=== PATIENT | female | born 1940 ===

== ENCOUNTER 2017-09-06 01:19 | Inpatient (IN) | payer MEDICARE ==
[2017-09-05 14:26] LABS: INR 0.98
[~2017-09-06] VITALS: Ht 167.6 cm; Wt 68.9 kg
[2017-09-06] VITALS (13 sets, daily range): BP systolic 123–185; BP diastolic 48–113
[~2017-09-06 01:19] MED LIST: ACET-1966 PO; ACETAMINOPHEN 500 MG TAB PO ONE; ASPI-1471 PO; ATOR10TA24 PO; CAR3.125 PO; CELECOXIB 200 MG CAP PO ONE; CLON-327 PO; DILT180C2 PO; FAMOTIDINE 20 MG TAB PO ONE; FURO-45 PO; HYDR-393 PO; LEVO50TA86 PO; LIDO1ADH41 TD; LIDOCAINE/SOD BICARB 8.4% SYR ID ONE; LOSA100T67 PO; METH-278 PO; MIDAZOLAM 2 MG/2 ML VIAL IVP PRN; NORMOSOL R SOLN(*) 1000 ML BAG 1,000 ML IV PRN; PREGABALIN 75 MG CAPSULE PO ONE; TRANEXAMIC AC 1000 MG/10ML SDV 1,000 MG in DEXTROSE 5% 50 ML BAG 50 ML IV ONE; TRAZ-156 PO; cloNIDine EPIDUR INJ 100MCG/ML 40 MCG, ROPIVACAINE 0.5% 20 ML VIAL 25 ML, EPINEPHrine H... INJ ONE
[2017-09-06] MEDS ORDERED: CLINDAMYCIN(*) 900 MG/NS 50 ML 50 ML IVPB ONE (06:00)
[2017-09-06] MEDS ORDERED: cloNIDine EPIDUR INJ 100MCG/ML 40 MCG, ROPIVACAINE 0.5% 20 ML VIAL 25 ML, EPINEPHrine H... INJ ONE (06:15)
[2017-09-06] MEDS ORDERED: LIDOCAINE/SOD BICARB 8.4% SYR ID ONE (06:15)
[2017-09-06] MEDS ORDERED: PREGABALIN 75 MG CAPSULE PO ONE (06:15)
[2017-09-06] MEDS ORDERED: MIDAZOLAM 2 MG/2 ML VIAL IVP PRN (06:15)
[2017-09-06] MEDS ORDERED: CELECOXIB 200 MG CAP PO ONE (06:15)
[2017-09-06] MEDS ORDERED: FAMOTIDINE 20 MG TAB PO ONE (06:15)
[2017-09-06] MEDS ORDERED: TRANEXAMIC AC 1000 MG/10ML SDV 1,000 MG in DEXTROSE 5% 50 ML BAG 50 ML IV ONE (06:15)
[2017-09-06] MEDS ORDERED: NORMOSOL R SOLN(*) 1000 ML BAG 1,000 ML IV PRN (06:15)
[2017-09-06] MEDS ORDERED: ACETAMINOPHEN 500 MG TAB PO ONE (06:15)
[2017-09-06] MEDS ORDERED: fentaNYL CITR 100 MCG/2 ML AMP ONE ×3 (06:50→09:54)
[2017-09-06] MEDS ORDERED: DEXAMETHASONE SOD 4 MG/ML VIAL ONE (06:50)
[2017-09-06] MEDS ORDERED: PROPOFOL EMUL(*) 10MG/ML 20 ML 20 ML ONE (06:50)
[2017-09-06] MEDS ORDERED: LIDOCAINE MPF 1% 5 ML VIAL ONE (06:50)
[2017-09-06] MEDS ORDERED: ONDANSETRON 4 MG/2 ML VIAL ONE (06:50)
[2017-09-06] MEDS ORDERED: KETAMINE HCL 200 MG/20 ML MDV ONE (06:51)
[2017-09-06] MEDS ORDERED: MIDAZOLAM 2 MG/2 ML VIAL ONE (06:54)
[2017-09-06] MEDS ORDERED: GLYCOPYRROLATE 0.2MG/ML 1 ML INJ ONE (07:10)
--- NOTE | 2017-09-06 08:39 | RADIOLOGY IMAGING REPORT ---
FACILITY: [facility] - [place] PATIENT NAME: Mary Kay Barrientos : 1940 MR: [id number] V: [id number] EXAM DATE: ORDERING PHYSICIAN: JUDI ZIMMERMAN TECHNOLOGIST: Location: [facility] - [place] Patient: Mary Kay Barrientos : 1940 Visit/Account:[id number] Date of Sevice: 09/05/2017 LEGS BILAT STANDING HIPS-ANKLE History: Leg pain. Left knee pain. Comparison study: None. Findings: Pelvis: There is diffuse osteopenia. There is no finding of a pelvic fracture. There is no femoral neck fracture. There has been posterior and intradiscal lumbar fusion in the lower lumbar spine. Hips: There are findings of osteoarthrosis involving the hips bilaterally that manifest as subchondra l sclerosis and superolateral joint space narrowing. Femurs: There is no finding of fracture involving the right or left femur. Knees: There are findings of diffuse joint space now with chondrocalcinosis and bony proliferation in volving the right and left knee. The findings are suggestive of osteoarthrosis and/or CPPD. Hip and right hemipelvis with respect to the left. This could reflect muscular spasm. Ankles: There is no fracture involving the right or left ankle. Note that in the pelvis there is subtle elevation of the right IMPRESSION: 1. Osteoarthrosis of the hips bilaterally. 2. Diffuse joint space narrowing and chondrocalcinosis of the right and left knee suggesting osteoar throsis and/or CPPD. 3. Osteopenia without fracture. 4. Postoperative changes lumbar spine. Report Dictated By: Sae Goodman MD at 09/06/2017 8:29 AM Report E-Signed By: Sae Goodman MD at 09/06/2017 8:35 AM WSN:[id number]
[2017-09-06] MEDS ORDERED: PROMETHAZINE 25 MG/ML 1 ML AMP IVP PRN (09:45)
[2017-09-06] MEDS ORDERED: FLUSH 10 ML SYR IVP PRN (09:45)
[2017-09-06] MEDS ORDERED: KCL/D5LR 20 MEQ/1000 ML PREMIX 1,000 ML IV PRN (09:45)
[2017-09-06] MEDS ORDERED: diphenhydrAMINE 25 MG CAP PO PRN (09:45)
[2017-09-06] MEDS ORDERED: MORPHINE SULFATE 30 MG PCA IV PRN (09:45)
[2017-09-06] MEDS ORDERED: MAGNESIUM CITRATE 300 ML BTL PO PRN (09:45)
[2017-09-06] MEDS ORDERED: NALOXONE HCL 0.4 MG/ML VIAL IVP PRN (09:45)
[2017-09-06] MEDS ORDERED: ACETAMINOPHEN 500 MG TAB PO PRN (09:45)
[2017-09-06] MEDS ORDERED: ONDANSETRON 4 MG/2 ML VIAL IVP PRN (09:45)
[2017-09-06] MEDS ORDERED: DOCU-416 PO (11:39)
--- NOTE | 2017-09-06 12:06 | RADIOLOGY IMAGING REPORT ---
FACILITY: [facility] - [place] PATIENT NAME: Mary Kay Barrientos : 1940 MR: [id number] V: [id number] EXAM DATE: ORDERING PHYSICIAN: JUDI ZIMMERMAN TECHNOLOGIST: Location: [facility] - [place] Patient: Mary Kay Barrientos : 1940 Visit/Account:[id number] Date of Sevice: 09/06/2017 KNEE LIMITED LEFT Indication: Postop knee Comparison: 09/05/2017 Findings: Compared to the previous study, patient has undergone patellar arthroplasty. Two part patellar prost hetic is now in place and appears in good alignment. Stable chondrocalcinosis is noted within the karina int space. IMPRESSION: 1. Unremarkable postoperative appearance of patellar arthroplasty Report Dictated By: Lake Crum at 09/06/2017 11:32 AM Report E-Signed By: Lake Crum at 09/06/2017 12:02 PM WSN:[id number]
--- NOTE | 2017-09-06 12:16 | Hospitalist Consultation ---
History of Present Illness Requesting Physician Dr. Zimmerman Reason for Consult Hypertension History of Present Illness This patient was admitted for knee replacement surgery. It is reported that the surgery went well and was without complication. History Problems: (1) Hypertension Home Meds Reported Medications Docusate Sodium (COLACE) 100 Mg Capsule, 100 MG PO BID, CAPSULE 09/06/17 Lidocaine (Lidocare) 4 % Adh..patch, 5 ADH.PATCH TD Q12H Y for PAIN 5% LIDOCAINE PATCH 12 HOURS ON 12 HOURS OFF 07/18/17 Acetaminophen/Hydrocodone (HYDROCODON-ACETAMINOPHN 10-325) 1 Each Tab, 1 EACH PO 5XD, TAB 07/18/17 Methocarbamol (METHOCARBAMOL) 500 Mg Tablet, 1000 MG PO QID MAX6/DAY 07/18/17 Atorvastatin Calcium (LIPITOR) 10 Mg Tablet, 1 TAB PO HS, TAB 07/18/17 Carvedilol (CARVEDILOL) 3.125 Mg Tab, 3.125 MG PO BID, TAB 07/18/17 Diltiazem Hcl (DILTIAZEM ER) 180 Mg Capsule.er, 180 MG PO BID 07/18/17 Clonidine Hcl (CLONIDINE HCL) 0.1 Mg Tablet, 0.2 MG PO BID, TAB 07/18/17 Losartan Potassium (LOSARTAN POTASSIUM) 100 Mg Tablet, 100 MG PO QDAY 07/18/17 Levothyroxine Sodium (LEVOTHYROXINE SODIUM) 50 Mcg Tablet, 25 MCG PO QDAY, TAB 07/18/17 Furosemide (FUROSEMIDE) 20 Mg Tablet, 1 TAB PO DAILY, TAB 07/18/17 Acetaminophen (TYLENOL) 325 Mg Tablet, 325 MG PO BID Y for PAIN, TAB 07/18/17 Aspirin (ASPIR 81) 81 Mg Tablet.dr, 81 MG PO QDAY, TAB 07/18/17 Allergies: Coded Allergies: Penicillins (Verified Allergy, Intermediate, RASH, 07/18/17) mercury (elemental) (Verified Allergy, Intermediate, SWELLING, RASH, ) Tetanus Vaccines and Toxoid (Unverified Allergy, Unknown, 09/05/17) doxycycline (Unverified Allergy, Unknown, 09/05/17) Patient History: FH: [place] (myocardial infarction) MOTHER, BROTHER OR SISTER, FH: cancer FATHER, FH: stroke MOTHER, Hx Smoking: Yes (2 PPD 40YRS, QUIT 2005) Smoking Status: Former Smoker Caffeine Intake: Coffee Caffeine/Cups Per Day: 2-3 CUPS DAILY Hx Alcohol Use: No Hx Substance Use Disorder: No Social Drug Use: Never History of IV Drug Use: No Review of Systems All Systems Reviewed/Normal: Yes Exam Vital Signs Vital Signs Date Time Temp Pulse Resp B/P (MAP) Pulse Ox O2 Delivery O2 Flow Rate FiO2 09/06/17 12:00 58 168/48 (88) 95 Nasal Cannula 1.0 09/06/17 10:35 16 09/06/17 10:35 97.6 Cardiovascular: Regular Rate and Rhythm Respiratory: Clear to Auscultation Medical Decision Making Data Points Result Diagram: 09/06/17 0952 Assessment and Plan Problems: (1) S/P knee surgery Assessment & Plan: She is on aspirin prophylaxis. (2) Hypertension Assessment & Plan: She is on chronic treatment with carvedilol, losartan, clonidine, and diltiazem. All of these medications have been ordered with hold parameters. (3) Hypothyroid Assessment & Plan: She is on chronic treatment with Synthroid. Copies to: JUDI ZIMMERMAN MD Venous Thromboembolism Antithrombotics Is Pt On Any Antithrombotics?: No Exam Sepsis Risk: No Definite Risk JOHN DEAN DO Sep 06, 2017 12:16
[2017-09-06] MEDS ORDERED: LIDOCAINE 5% PATCH TP PRN (12:30)
[2017-09-06] MEDS ORDERED: NS(*) 0.9% 250 ML BAG 250 ML ONE (13:18)
[2017-09-06] MEDS: CLINDAMYCIN(*) 600 MG/NS 50 ML 50 ML IVPB SCH ×2 (14:17→22:27)
--- NOTE | 2017-09-06 14:59 | OPERATIVE REPORT 1 ---
EVENT DATE: September 06, 2017 SURGEON: Remigio Rubio MD ANESTHESIOLOGIST: Orestes Rudd MD ANESTHESIA: General plus spinal. CONTENT ASSISTANT: Denilson Motta PA-C PREOPERATIVE DIAGNOSIS Left patellofemoral arthritis. POSTOPERATIVE DIAGNOSIS Left patellofemoral arthritis. PROCEDURE PERFORMED Left patellofemoral arthroplasty. ESTIMATED BLOOD LOSS 50 INTRAVENOUS FLUIDS Crystalloid 1300, no colloid. TOURNIQUET TIME 49 SPECIMENS No specimens. COMPLICATIONS No complications. IMPLANTS USED Arthrosurface 8.5 x 5 patellofemoral arthroplasty with an 11 taper post and a 32 mm anatomic DePuy Attune patella. SUMMARY OF PROCEDURE The patient was brought into the operating room and placed on the OR table in the supine position. She was then placed in the seated position, and Dr. Rudd undertook the spinal anesthetic, after which she was returned to the supine position, and a light general anesthetic was given. Her left lower extremity was prepped and draped in the usual sterile fashion. The limb was exsanguinated, and the tourniquet was inflated. Her old incision from the previous procedure in the 1960s that was done up in [place] as a child was re- utilized, allowing for medial parapatellar arthrotomy. The fat pad was very dense and was partially excised to allow for mobilization of the patella. There was complete eburnation of the patellofemoral articular surface, particularly on the lateral side. There were also osteophytes in the notch and along the superior margin of the trochlea. In contradistinction, the medial and lateral weightbearing surfaces were in very good condition with intact menisci. The ACL and PCL were intact. After eversion, we removed the osteophytes in the notch and over the trochlear groove to allow for a normal matching surface back to an anatomic shape. We then used the guide to assess the position of the pin and then placed the guidewire and then measured. It looks like an 8.5 superior to inferior as well as a 5 mm medial to lateral implant would be best. We then proceeded with the milling. When doing the superior mill, it looked like the milling device dug in a little deeper than normal. Her bone was rather soft, so we decided that we would probably use cement for both the post and the implant, but we would also use cement for the patella as is the normal procedure. We did the trial reduction and then prepared the patella. It was only 19.5 mm thick, so we used the car and trimmed off just superficial to the greatest defect on the lateral facet. We then placed a 9.5 mm implant which brought the total thickness back very close to where she had been. Once everything was prepared for cementation with irrigation having been used, we then mixed cement and packed cement into the hole where we had done the tap and inserted the taper post. We then placed additional cement through the bed of the position where the implant would lie and impacted that onto the Lo taper, after which the cement was applied to the patella, and that was inserted as well. Excess cement was removed from all locations. We held pressure until full polymerization. An additional dose of TXA was given as the tourniquet was deflated. Unipolar cautery was used where necessary for hemostasis, followed by repeat irrigation and then testing in flexion. When we got to max flexion of about 140 degrees, there was a small click as the kneecap was tilting, but when I used a hemostat to simulate closure of the capsule, the clicking was no longer present. It all seemed to move very smoothly. The wound was irrigated one final time before closing the capsule with #1 Vicryl, followed by repeat irrigation and then closure of the subcutaneous tissues with 3-0 Vicryl with Monocryl used for the subcuticular closure and a Dermabond strip applied. She had been given a local anesthetic throughout the periosteum and quadriceps tendon before closure. She was awakened and transferred to the recovery area in stable condition. SCOTT
[2017-09-06] MEDS ORDERED: MENTHOL/METHYL SALI CREAM 57 GM 57 GM TUBE TP PRN (15:30)
[2017-09-06] MEDS: CARVEDILOL 3.125 MG TAB PO SCH (20:59)
[2017-09-06] MEDS: cloNIDine HCL 0.1 MG TAB PO SCH (21:00)
[2017-09-06] MEDS ORDERED: PATCH REMOVAL 1 EA TP SCH (21:00)
[2017-09-06] MEDS ORDERED: ATORVASTATIN 10 MG TAB PO SCH (21:00)
[2017-09-06] MEDS: METHOCARBAMOL 500 MG TAB PO PRN (22:29)
[2017-09-07 02:46] VITALS: BP 201/71
[2017-09-07 05:51] VITALS: BP 163/42
[2017-09-07] MEDS ORDERED: LEVOTHYROXINE SOD 0.05 MG TAB PO SCH (06:00)
[2017-09-07 06:09] LABS: PLATELET COUNT, AUTOMATED 128 K/uL (150-450)
[2017-09-07] MEDS: CLINDAMYCIN(*) 600 MG/NS 50 ML 50 ML IVPB SCH (06:28)
[2017-09-07] MEDS ORDERED: ASPI-764 PO (07:03)
[2017-09-07 07:44] VITALS: BP 164/57
[2017-09-07] MEDS: CARVEDILOL 3.125 MG TAB PO SCH (08:47)
[2017-09-07] MEDS: cloNIDine HCL 0.1 MG TAB PO SCH (08:47)
[2017-09-07] MEDS ORDERED: DILTIAZEM CD 180 MG CAPCR PO SCH (09:00)
[2017-09-07] MEDS ORDERED: LOSARTAN POTASSIUM 50 MG TAB PO SCH (09:00)
[2017-09-07] MEDS ORDERED: ASPIRIN 325 MG ENTERIC COATED PO SCH (09:00)
[2017-09-07] MEDS ORDERED: OXYC5CAP21 PO (09:03)
[2017-09-07] MEDS ORDERED: OXYGENHOME INH (09:19)
--- NOTE | 2017-09-07 09:33 | Hospitalist Progress Note ---
Subjective Progress Notes Subjective No new complaints. O2 saturations drop into the 70s on room air. She lives at [place], [address] feet so is not significantly lower than [place]. Physical Exam Vital Signs Date Time Temp Pulse Resp B/P (MAP) Pulse Ox O2 Delivery O2 Flow Rate FiO2 09/07/17 07:57 72 09/07/17 07:45 Nasal Cannula 1.0 09/07/17 07:44 98.5 58 14 164/57 (92) Intake and Output 09/08/17 06:59 Intake Total 240 ml Balance 240 ml Intake Oral 240 ml General Appearance: Alert, Awake, No Acute Distress Neuro: No Gross deficits Cardiovascular: Regular Rate and Rhythm (With ELDON) Respiratory: Clear to Auscultation GI: Soft and Non-Tender Extremities: Warm, Perfused Psych: Appropriate Mood & Affect Result Diagram: 09/07/17 0538 Assessment and Plan Problems: (1) S/P knee surgery Assessment & Plan: She is on aspirin 325mg daily for DVT prophylaxis. She will hold her 81mg aspirin while on the higher dose. (2) Hypertension Assessment & Plan: She is on chronic treatment with carvedilol, losartan, clonidine, and diltiazem. All of these medications were ordered with hold parameters. (3) Hypothyroid Assessment & Plan: She was continued on chronic treatment with Synthroid. (4) Postoperative hypoxia Status: Acute Assessment & Plan: Will send her home on oxygen. She is to follow up with someone at her PCP's office after discharge to see if she can wean off of the O2. She was seeing Dr. Moreno, but she recently moved away. Time Spent on Plan of Care: < 30 min Exam Sepsis Risk: No Definite Risk KADE JARAMILLO MD Sep 07, 2017 09:33
[2017-09-07] MEDS: METHOCARBAMOL 500 MG TAB PO PRN (10:52)
[2017-09-07 12:52] VITALS: Ht 167.6 cm; Wt 68.9 kg
== END 2017-09-07 13:45 | disposition home or self-care (01) | DRG 489 ==
LOC: OR 01:19 → MED 12:04
PROVIDERS: ADMIT Orthopaedic Surgery Hand Surgery; ATTEND Orthopaedic Surgery Hand Surgery
PROC: 0QRF0JZ Replacement of Left Patella with Synthetic Substitute, Open Approach (ICD-10-PCS; 2017-09-06)
PROC: 0SUU09Z Supplement Left Knee Joint, Femoral Surface with Liner, Open Approach (ICD-10-PCS; principal; 2017-09-06 07:10)
DX: M17.12 Unilateral primary osteoarthritis, left knee (principal); I10 Essential (primary) hypertension; E03.9 Hypothyroidism, unspecified; I25.10 Atherosclerotic heart disease of native coronary artery without angina pectoris; G47.33 Obstructive sleep apnea (adult) (pediatric); F17.210 Nicotine dependence, cigarettes, uncomplicated; G89.29 Other chronic pain; E11.9 Type 2 diabetes mellitus without complications; I27.20 Pulmonary hypertension, unspecified; R09.02 Hypoxemia; Y83.8 Other surgical procedures as the cause of abnormal reaction of the patient, or of later complication, without mention of misadventure at the time of the procedure; Y79.3 Surgical instruments, materials and orthopedic devices (including sutures) associated with adverse incidents; Y92.230 Patient room in hospital as the place of occurrence of the external cause; Z90.710 Acquired absence of both cervix and uterus; Z98.1 Arthrodesis status; Z88.0 Allergy status to penicillin; Z88.7 Allergy status to serum and vaccine; Z88.8 Allergy status to other drugs, medicaments and biological substances
CPT/HCPCS: 36415; 77073; 85014; 85018; 85025; 85610; 86850; 86900; 86901; 97161; C1776; J0171; J0735; J1100; J1885; J2001; J2250; J2405; J2704; J2795; J3010; J3490; J7050; J7060; L1830